=== PATIENT | male | born 1960 ===

== ENCOUNTER 2016-05-17 10:10 | Outpatient (CLI) | payer OTHER | END 2016-05-17 23:59 | disposition home or self-care (01) | LOC: LAB 10:10 | PROVIDERS: ATTEND Internal Medicine | DX: Z01.818 Encounter for other preprocedural examination (principal); S83.242A Other tear of medial meniscus, current injury, left knee, initial encounter; X58.XXXA Exposure to other specified factors, initial encounter; Y93.89 Activity, other specified; Y92.89 Other specified places as the place of occurrence of the external cause; Y99.8 Other external cause status | CPT/HCPCS: 36415; 71010; 85025; 85730 ==

== ENCOUNTER 2016-05-19 06:06 | Day surgery (SDC) | payer OTHER ==
[2016-05-17 10:38] LABS: EOSINOPHILS # (AUTO) 0.1 K/uL (0.0-0.7); EOSINOPHILS % (AUTO) 2.4 % (0.0-7.0); HEMATOCRIT 46.4 % (40.0-50.0); LYMPHOCYTES % (AUTO) 21.9 % (20.5-51.5); MEAN CORPUSCULAR HEMOGLOBIN 30.7 uug (27.0-31.0); MEAN CORPUSCULAR HGB CONC 35 g/dL (32.0-37.0); MEAN CORPUSCULAR VOLUME 88.9 fL (82.0-92.0); MONOCYTES # (AUTO) 0.3 K/uL (0.1-1.30); MONOCYTES % (AUTO) 7.5 % (0.0-11.0); NEUTROPHILS % (AUTO) 67.2 % (38.5-71.5); PLATELET COUNT (AUTO) 211 K/uL (150-450); RED BLOOD CELL COUNT(AUTO) 5.22 MIL/uL (4.70-6.10); RED CELL DISTRIBUTION WIDTH 12.3 % (11.5-14.5); WHITE BLOOD COUNT (AUTO) 4.4 K/uL (4.0-11.2)
[2016-05-17 10:41] LABS: CALCIUM 8.6 mg/dL (8.5-10.1); CREATININE 0.9 mg/dL (0.6-1.3); POTASSIUM 4.2 mmol/L (3.5-5.1)
[2016-05-17 11:00] LABS: *BILIRUBIN,URIN NEGATIVE (NEGATIVE); *BLOOD, URINE Trace-lysed (NEGATIVE); *CLARITY,URINE CLEAR (CLEAR); *COLOR,URINE YELLOW (YELLOW); *KETONES,URINE NEGATIVE (NEGATIVE); *PROTEIN,URINE NEGATIVE (NEGATIVE); *UROBILINOGEN,URINE 0.2 E.U./dl (NORMAL); LEUKOCYTE ESTERASE ,URINE NEGATIVE (NEGATIVE); NITRITE, URINE NEGATIVE (NEGATIVE); UGLUCOSE NEGATIVE (NEGATIVE)
[2016-05-17 11:13] LABS: BACTERIA,URINE FEW /HPF (NONE SEEN); SQUAMOUS EPITHELIAL CELL,UR FEW /HPF (NONE SEEN); WBC,URINE 0-3 /HPF (0-3)
[2016-05-17 11:16] LABS: RBC,URINE 0-3 /HPF (0-3)
[2016-05-19] MEDS ORDERED: BUPIVACAINE 0.25% 30 ML VIAL ONE (07:37)
[2016-05-19] MEDS ORDERED: MORPHINE SULFATE PF 10 MG/10 ML AMPUL IV ONE (07:37)
[2016-05-19] MEDS ORDERED: BUPIVACAINE/EPI PF 0.25% 30 ML VIAL ONE (07:43)
[2016-05-19] MEDS ORDERED: FENTANYL CITRATE 100 MCG/2 ML AMPUL ONE ×2 (07:55→09:54)
[2016-05-19] MEDS ORDERED: SEVOFLURANE 250 ML BOTTLE ONE (07:56)
[2016-05-19] MEDS ORDERED: MIDAZOLAM HCL 2 MG/2 ML VIAL ONE (07:56)
[2016-05-19] MEDS ORDERED: PROPOFOL 200 MG/20 ML BOTTLE IV ONE (14:26)
[2016-05-19] MEDS ORDERED: CEFAZOLIN 1 G VIAL MC ONE (14:26)
[2016-05-19] MEDS ORDERED: ONDANSETRON 4 MG/2 ML VIAL IV ONE (14:27)
[2016-05-19] MEDS ORDERED: KETOROLAC TROMETHAMINE 30 MG INJ IM ONE (14:27)
[2016-05-19] MEDS ORDERED: LIDOCAINE HCL 1% 20 ML VIAL MC ONE (14:27)
[2016-05-19] MEDS ORDERED: EPHEDRINE SULFATE 50 MG/ML AMPUL MC ONE (14:28)
[2016-05-19] MEDS ORDERED: IV NORMAL SALINE 1000 ML BAG IV ONE (14:28)
== END 2016-05-19 11:26 | disposition home or self-care (01) ==
LOC: DS 06:06
PROVIDERS: ATTEND Orthopaedic Surgery
DX: M23.222 Derangement of posterior horn of medial meniscus due to old tear or injury, left knee (principal); M94.262 Chondromalacia, left knee; E11.9 Type 2 diabetes mellitus without complications; E66.9 Obesity, unspecified; Z85.850 Personal history of malignant neoplasm of thyroid
CPT/HCPCS: 29876; 29881; 36415; 71010; 80048; 81001; 82962; 85025; 85730; 93005; A4663; J0690; J1885; J2250; J2274; J2405; J3010 ×2; J3490 ×4; J7030 ×2; J7120